=== PATIENT | female | born 1955 | race Caucasian/White ===

== ENCOUNTER 2022-03-13 07:16 | Inpatient (IN) ==
[2022-03-13] MEDS ORDERED: PIPERACILLIN/TAZOBACTAM 3,375 MG in SODIUM CHLORIDE 0.9% 100 ML IV STA (07:53)
[2022-03-13] MEDS ORDERED: hydrALAZINE 20 MG/1 ML VIAL IV STA (08:09)
[2022-03-13 08:47] LABS: Basophils % 0.2 % (0.0-0.8); Hematocrit 36.8 VOL% (35.7-47.0); Hemoglobin 12.3 GM/DL (12.0-16.0); Immature Granulocytes % 0.3 %; Immature Granulocytes Absolute 0.04 #; Lymphocytes # 1.2 10*3/uL (1.4-4.0); Lymphocytes % 8.7 % (21.3-54.2); Mean Corpuscular HGB Conc 33.4 GM/DL (32-36); Mean Corpuscular Volume 94.6 FL (87-102); Monocytes # 0.9 10*3/uL (0.11-0.8); Monocytes % 6.6 % (1.7-12.7); Neutrophils % 84.2 % (38.7-73.9); Platelet Count 246 T/CUMM (130-400); Red Blood Count 3.89 MC/CUMM (3.8-5.5); Red Cell Distribution Width 13.2 % (9.3-17.3); White Blood Count 13.3 T/CUMM (4-12)
[2022-03-13] MEDS ORDERED: ACETAMINOPHEN 325 MG TABLET PO PRN (08:55)
[2022-03-13] MEDS: LACTATED RINGERS 1,000 ML IV SCH ×2 (09:05→16:16)
[2022-03-13 09:19] LABS: Calcium 9.3 MG/DL (8.5-10.1); Osmolality,Calculated 285.3 MOS/KG (273-304); Potassium 3.7 MMOL/L (3.5-5.1)
[2022-03-13] MEDS ORDERED: LIDOCAINE 1%/EPI INJ 20 ML VIAL ONE (09:19)
[2022-03-13] MEDS ORDERED: BUPIVACAINE MPF 0.25% 10 ML VIAL ONE ×2 (09:19→09:20)
[2022-03-13] MEDS ORDERED: TISSUE ADHESIVE 1 EACH APPLICATOR TOP ONE (09:19)
[2022-03-13] MEDS ORDERED: SEVOFLURANE 1 UNIT/15 MINUTE INH ONE ×2 (09:21→10:54)
[2022-03-13] MEDS ORDERED: LIDOCAINE 2% 5 ML VIAL ONE (09:21)
[2022-03-13] MEDS ORDERED: ONDANSETRON 4 MG/2 ML VIAL ONE (09:21)
[2022-03-13] MEDS ORDERED: propofoL 200 MG/20 ML VIAL IV ONE (09:21)
[2022-03-13] MEDS ORDERED: ROCURONIUM 50 MG/5 ML VIAL IV ONE (09:21)
[2022-03-13] MEDS ORDERED: fentaNYL 100 MCG/2 ML VIAL ONE (09:21)
[2022-03-13] MEDS ORDERED: MIDAZOLAM 2 MG/2 ML VIAL ONE (09:21)
[2022-03-13] MEDS: PANTOPRAZOLE 40 MG TABLET PO SCH (09:36)
[2022-03-13] MEDS: DOCUSATE SODIUM 100 MG CAPSULE PO SCH ×3 (09:36→21:53)
[2022-03-13] MEDS ORDERED: PHENYLEPHRINE 1 MG/10 ML SYRINGE IV ONE (10:15)
[2022-03-13] MEDS ORDERED: HYDROmorphone 1 MG/1 ML SYRINGE IV PRN (10:31)
[2022-03-13] MEDS ORDERED: PROMETHAZINE INJ 25 MG in SODIUM CHLORIDE 0.9% 50 ML IV PRN (10:31)
[2022-03-13] MEDS ORDERED: ONDANSETRON 4 MG/2 ML VIAL IV PRN (10:31)
[2022-03-13] MEDS ORDERED: MEPERIDINE 25 MG/1 ML VIAL IV PRN (10:31)
[2022-03-13] MEDS ORDERED: LACTATED RINGERS 1,000 ML IV ONE (10:47)
[2022-03-13] MEDS ORDERED: SUGAMMADEX 200 MG/2 ML VIAL IV ONE (10:49)
[2022-03-13 11:54] LABS: Amorphous Crystals,Urine Many /HPF (Few); Mucus,Urine Few /LPF (Occasional); Urine Appearance Turbid (Clear); Urine Color Dark Yellow (Yellow); Urine pH 5.5 (4.5-8.0)
[2022-03-13 11:55] LABS: Bilirubin,Urine Negative (Negative); Blood, Urine Negative (Negative); Glucose,Urine (UA) Negative (Negative); Ketones,Urine Negative (Negative); Nitrite,Urine Negative (Negative); Protein,Urine 30 mg/dL (Negative); Urine Specific Gravity > 1.030 (1.001-1.035); Urine Urobilinogen 0.2 eU/dL (<2.0)
[2022-03-13] MEDS: ONDANSETRON 4 MG/2 ML VIAL IV PRN (13:35)
[2022-03-13] MEDS: MORPHINE 2 MG/1 ML SYRINGE IV PRN (13:37)
[2022-03-13] MEDS: PIPERACILLIN/TAZOBACTAM 3,375 MG in SODIUM CHLORIDE 0.9% 100 ML IV SCH (16:16)
[2022-03-14] MEDS: PIPERACILLIN/TAZOBACTAM 3,375 MG in SODIUM CHLORIDE 0.9% 100 ML IV SCH ×3 (00:28→22:11)
[2022-03-14] MEDS: MORPHINE 2 MG/1 ML SYRINGE IV PRN ×2 (01:43→06:20)
[2022-03-14] MEDS: LACTATED RINGERS 1,000 ML IV SCH ×3 (02:05→17:03)
[2022-03-14 06:42] LABS: Basophils % 0.2 % (0.0-0.8); Eosinophils % 0.2 % (0.00-10.9); Hematocrit 34.7 VOL% (35.7-47.0); Hemoglobin 11.6 GM/DL (12.0-16.0); Immature Granulocytes % 0.8 %; Immature Granulocytes Absolute 0.08 #; Lymphocytes # 1.2 10*3/uL (1.4-4.0); Lymphocytes % 11.6 % (21.3-54.2); Mean Corpuscular HGB Conc 33.4 GM/DL (32-36); Mean Corpuscular Volume 93.8 FL (87-102); Mean Platelet Volume 9.1 FL (9.6-12.0); Monocytes # 0.4 10*3/uL (0.11-0.8); Monocytes % 3.6 % (1.7-12.7); Neutrophils % 83.6 % (38.7-73.9); Platelet Count 230 T/CUMM (130-400); Red Cell Distribution Width 12.8 % (9.3-17.3); White Blood Count 10.6 T/CUMM (4-12)
[2022-03-14 06:55] LABS: Osmolality,Calculated 280.4 MOS/KG (273-304); Potassium 3.6 MMOL/L (3.5-5.1)
[2022-03-14] MEDS: PANTOPRAZOLE 40 MG TABLET PO SCH ×4 (10:57→17:16)
[2022-03-14] MEDS: DOCUSATE SODIUM 100 MG CAPSULE PO SCH ×2 (10:57→21:52)
[2022-03-14] MEDS: ONDANSETRON 4 MG/2 ML VIAL IV PRN (17:18)
[2022-03-14] MEDS: PROMETHAZINE INJ 25 MG in SODIUM CHLORIDE 0.9% 50 ML IV PRN (20:18)
[2022-03-14] MEDS: NIACIN 500 MG TABLET PO SCH (21:52)
[2022-03-15] MEDS: ONDANSETRON 4 MG/2 ML VIAL IV PRN ×2 (01:48→21:04)
[2022-03-15] MEDS: PROMETHAZINE INJ 25 MG in SODIUM CHLORIDE 0.9% 50 ML IV PRN (03:50)
[2022-03-15] MEDS: PIPERACILLIN/TAZOBACTAM 3,375 MG in SODIUM CHLORIDE 0.9% 100 ML IV SCH ×3 (06:01→23:35)
[2022-03-15] MEDS: LISINOPRIL/HCTZ 10-12.5 MG TABLET PO SCH (08:47)
[2022-03-15] MEDS: LACTATED RINGERS 1,000 ML IV SCH ×3 (09:38→18:42)
[2022-03-15] MEDS: DOCUSATE SODIUM 100 MG CAPSULE PO SCH ×2 (10:01→21:03)
[2022-03-15] MEDS: PANTOPRAZOLE 40 MG TABLET PO SCH (10:01)
[2022-03-15] MEDS: NIACIN 500 MG TABLET PO SCH ×2 (10:01→21:03)
[2022-03-15] MEDS: COENZYME Q10 100 MG CAPSULE PO SCH (10:01)
[2022-03-15] MEDS ORDERED: LISINOPRIL/HCTZ 10-12.5 MG TABLET PO SCH (11:00)
[2022-03-15] MEDS: METOCLOPRAMIDE 10 MG/2 ML VIAL IV SCH ×3 (11:41→23:35)
[2022-03-16] MEDS: METOCLOPRAMIDE 10 MG/2 ML VIAL IV SCH (05:29)
[2022-03-16] MEDS: PIPERACILLIN/TAZOBACTAM 3,375 MG in SODIUM CHLORIDE 0.9% 100 ML IV SCH ×3 (06:20→22:49)
[2022-03-16] MEDS: COENZYME Q10 100 MG CAPSULE PO SCH (08:34)
[2022-03-16] MEDS: PANTOPRAZOLE 40 MG TABLET PO SCH (08:34)
[2022-03-16] MEDS: DOCUSATE SODIUM 100 MG CAPSULE PO SCH ×2 (08:34→20:10)
[2022-03-16] MEDS: NIACIN 500 MG TABLET PO SCH ×2 (08:34→21:00)
[2022-03-16] MEDS: LISINOPRIL/HCTZ 10-12.5 MG TABLET PO SCH (08:34)
[2022-03-16] MEDS: LACTATED RINGERS 1,000 ML IV SCH ×2 (12:24→20:11)
[2022-03-16] MEDS: hydrALAZINE 10 MG TABLET PO PRN ×2 (12:26→21:00)
[2022-03-17] MEDS: LACTATED RINGERS 1,000 ML IV SCH ×3 (04:11→14:15)
[2022-03-17] MEDS: hydrALAZINE 10 MG TABLET PO PRN (05:00)
[2022-03-17] MEDS: PIPERACILLIN/TAZOBACTAM 3,375 MG in SODIUM CHLORIDE 0.9% 100 ML IV SCH (06:05)
[2022-03-17 06:06] LABS: Basophils % 0.5 % (0.0-0.8); Eosinophils # 0.2 10*3/uL (0.0-0.87); Eosinophils % 2.5 % (0.00-10.9); Hematocrit 32.4 VOL% (35.7-47.0); Hemoglobin 10.9 GM/DL (12.0-16.0); Immature Granulocytes % 2.2 %; Immature Granulocytes Absolute 0.17 #; Lymphocytes # 1.5 10*3/uL (1.4-4.0); Lymphocytes % 18.6 % (21.3-54.2); Mean Corpuscular HGB Conc 33.6 GM/DL (32-36); Mean Corpuscular Volume 93.4 FL (87-102); Mean Platelet Volume 8.7 FL (9.6-12.0); Monocytes # 0.6 10*3/uL (0.11-0.8); Monocytes % 7.5 % (1.7-12.7); NRBC # 0.02 10*3/uL; Neutrophils % 68.7 % (38.7-73.9); Platelet Count 272 T/CUMM (130-400); Red Blood Count 3.47 MC/CUMM (3.8-5.5); White Blood Count 7.9 T/CUMM (4-12)
[2022-03-17 06:25] LABS: Calcium 8.8 MG/DL (8.5-10.1); Potassium 3.2 MMOL/L (3.5-5.1)
[2022-03-17] MEDS: NIACIN 500 MG TABLET PO SCH (09:28)
[2022-03-17] MEDS: COENZYME Q10 100 MG CAPSULE PO SCH (09:28)
[2022-03-17] MEDS: LISINOPRIL/HCTZ 10-12.5 MG TABLET PO SCH (09:29)
[2022-03-17] MEDS: PANTOPRAZOLE 40 MG TABLET PO SCH (09:29)
[2022-03-17] MEDS: DOCUSATE SODIUM 100 MG CAPSULE PO SCH (09:29)
[2022-03-17] MEDS: POTASSIUM CHLORIDE 20 MEQ TABLET PO PRN ×2 (09:31→12:02)
[2022-03-17 10:57] VITALS: BP 184/79
== END 2022-03-17 14:10 | disposition home or self-care (01) | DRG 339 ==
LOC: N.ED 07:16 → N.EDINP 08:55 → N.3E 09:40
PROVIDERS: ADMIT Surgery; ATTEND Surgery